=== PATIENT | male | born 1990 | race Two or more races ===

== ENCOUNTER 2024-05-25 13:57 | Emergency (ER) | payer OTHER ==
[~2024-05-25] VITALS: Ht 170.2 cm; Wt 72.6 kg
[2024-05-25 15:38] VITALS: BP 136/72; O2SAT 99
[2024-05-25] MEDS ORDERED: TOBRADEX ST EYE5 ML OP (18:42)
== END 2024-05-25 18:55 | disposition home or self-care (01) ==
LOC: ER 13:59
DX: H10.9 Unspecified conjunctivitis (principal)